=== PATIENT | male | born 1990 | race Two or more races ===

== ENCOUNTER 2022-11-04 16:49 | Emergency (ER) | payer SELFPAY ==
[~2022-11-04] VITALS: Ht 188 cm; Wt 70.3 kg
--- NOTE | 2022-11-04 17:15 | NUR ---
sob, L sided numbness onset x 1 hour. admits to "meth" ingestion at 0900. PUT ON BED, POX AND MONITOR. CLAIMS TINGLING OF DAVID HANDS
--- NOTE | 2022-11-04 17:25 | NUR ---
IV INSERTED AY RAC 20G. BLD DRAWN AND SENT TO LAB
--- NOTE | 2022-11-04 17:45 | NUR ---
PARTNER AT BEDSIDE
[2022-11-04] MEDS ORDERED: IV NS 0.9% 1,000 ML BAG IV ONE (19:00)
[2022-11-04] MEDS ORDERED: LORAZEPAM INJ 2 MG/ML VIAL IV ONE (19:00)
[2022-11-04 19:08] LABS: BASOPHILS % (AUTO) 0.2 % (0.0-2.0); HEMATOCRIT 43 % (39-51); HEMOGLOBIN 14.2 g/dL (13.5-17.5); LYMPHOCYTES # (AUTO) 0.9 K/uL (0.8-4.8); LYMPHOCYTES % (AUTO) 4.1 % (20.0-44.0); MEAN CORPUSCULAR HGB CONC 33 g/dl (31.0-36.0); MEAN CORPUSCULAR VOLUME 91 fL (80-96); MONOCYTES # (AUTO) 0.8 K/uL (0.1-1.30); MONOCYTES % (AUTO) 3.6 % (2.0-12.0); NEUTROPHILS # (AUTO) 20.2 K/uL (1.8-8.9); NEUTROPHILS % (AUTO) 92.1 % (43.0-81.0); PLATELET COUNT (AUTO) 237 K/uL (150-450); RED BLOOD CELL COUNT(AUTO) 4.74 MIL/uL (4.5-6.0); WHITE BLOOD COUNT (AUTO) 21.9 K/uL (4.3-11.0)
[2022-11-04 19:27] LABS: CALCIUM, SERUM 9.8 mg/dL (8.5-10.1); CARBON DIOXIDE 19 mmol/L (21-32); CHLORIDE 96 mmol/L (98-107); CREATININE 1.2 mg/dL (0.6-1.3); GLUCOSE 122 mg/dL (74-106); POTASSIUM 3.8 mmol/L (3.5-5.1); SODIUM SERUM 133 mmol/L (136-145); UREA NITROGEN, BLOOD 16 mg/dL (7-18)
--- NOTE | 2022-11-04 19:35 | NUR ---
trop 176
[2022-11-04] MEDS ORDERED: LORAZEPAM INJ 2 MG/ML VIAL ONE (19:43)
--- NOTE | 2022-11-04 19:58 | NUR ---
RECEIVED PT AWAKE, ANXIOUS, TREMBLING BUT NOT COLD. TOOK METH EARLIER AND POSSIBLY HAVING EFFECT OF DRUGS. WITH IV ACCESS ON LEFT AC G20. WITH ONGOING IVF OF NS. ATIVAN IV GIVEN BY GRACE LEWIS. VITALS CHECKED AND MONITORED
--- NOTE | 2022-11-04 20:24 | NUR ---
Rufino carmona in EDM - 11/04/22 at 2024 by GARY PT CAME BACK FROM CT SCAN, ANXIOUS, DIAPHORETIC. ATTACHED BACK TO S[facility]. ATIVAN IV GIVEN
--- NOTE | 2022-11-04 22:38 | NUR ---
CRITICAL LAB TROPONIN 349 DR RODERICK ANDERSEN AWARE
[2022-11-04] MEDS ORDERED: LORA-259 PO (22:57)
--- NOTE | 2022-11-04 23:11 | NUR ---
Patient discharged to home in stable condition. rx Written and verbal after care instructions given. Patient verbalizes understanding of instruction. pt ambulatory with a steady gait. IV removed. Catheter intact and site benign. Pressure and 4x4 applied to site. No bleeding noted.
[2022-11-04 23:12] VITALS: BP 135/87
== END 2022-11-04 23:15 | disposition home or self-care (01) ==
LOC: ER 17:03
DX: F15.129 Other stimulant abuse with intoxication, unspecified (principal); I21.A1 Myocardial infarction type 2; F17.200 Nicotine dependence, unspecified, uncomplicated; Z79.899 Other long term (current) drug therapy
CPT/HCPCS: 99285; 96374; 71045; 96361; 93005 ×3; 85025; 80048; 36415; 84484 ×2; J2060; J7030